=== PATIENT | female | born 1985 | race Caucasian/White ===

== ENCOUNTER 2018-10-29 13:47 | Emergency (ER) | payer BC, SELFPAY ==
[2018-10-29 13:52] VITALS: BP 115/93; PULSE 64; RESP 14; TEMP 36.5; O2SAT 100
--- NOTE | 2018-10-29 14:03 | W.ED.GENAD ---
Discharge Plan Disposition Patient Disposition: HOME Condition: Good Discharge Details Chief Complaint: EyeProblem Clinical Impression: Blepharitis Primary Care Provider: Eve Galicia ED Provider: Jose Miguel Hedrick Home Meds and New Rx's Prescriptions: No Action No Known Home Meds RF: 0 Discharge Instructions Instructions: Blepharitis (ED) Additional Instructions: Please wash your eyes very gently 3 times a day with baby shampoo. Please follow-up with your gas systems worker as soon as possible for reassessment. If you notice any worsening of your symptoms, or any new symptoms such as vision changes, eye pain, vomiting, diarrhea, fever, chills, shortness of breath, chest pain, numbness, weakness, or fainting , please return immediately to the emergency department for reevaluation. Please follow up with your primary care provider as soon as possible for reassessment and reevaluation. As always, it was a pleasure participating in your medical care today. Referrals: Eve Galicia MD [Primary Care Provider] - Medical Decision Making This is a pleasant 33-year-old female who presents with symptoms of itching for the upper eyelid by the lashes themselves. Physical exam demonstrates evidence of a small amount of sebum, slightly retracted lashes. Concern from very mild blepharitis. No evidence of periorbital edema or cellulitis. No pain with movement of the eye. No signs or symptoms concerning for conjunctivitis. No evidence of mites on exam. Recommend to the patient that she washes her eyes 3 times daily with baby shampoo, as well as avoiding her numerous care. Discussed importance of close follow-up with her gas systems worker with Dr. Jalloh office. I see no indication for antibiotics at this time. The patient's symptoms do not improve tetracycline may be a reasonable alternative for future Sebum management. I have extensively reviewed the treatment plan and discharge instructions with the patient. I have addressed all patient concerns at this time. The patient was made aware of what symptoms to monitor for that would warrant a return to the emergency department. Discussed the plan with the patient, they demonstrate verbal understanding and agreement with our assessment and plan at this time. HPI General Date/Time Provider Initiated Documentation: 10/29/18 13:50. HPI Narrative: This is a 33-year-old female with no significant past medical history who presents today with irritation for her upper eyelids bilaterally. She states that she was looking up online and was concerned that it may be mites from her new mascara. She describes mild swelling in the upper lids bilaterally which is now improved and now she has some flaky irritation. She denies any significant matting, discharge, eye pain, itchiness for the eyes themselves, or other abnormalities. She denies any trauma. She denies any fever, chills, or infection. No pain with movement of her eyes. No other modifying factors or complaints at this time. Related Data Home Medications Medication Instructions Recorded Confirmed Unknown [No Known Home Meds] 10/29/18 10/29/18 Allergies Allergy/AdvReac Type Severity Reaction Status Date / Time No Known Allergies Allergy Unverified 06/19/17 13:14 General Stated Complaint: EyeProblem FERNANDO: 4 Review of Systems Review of Systems All systems reviewed & are unremarkable except as noted in HPI and below PFSH Medical History Human papilloma virus (HPV) infection Family History Mother Alcohol abuse Father No problems noted. Son No problems noted. Son No problems noted. Social History Smoking and Tabacco status: Never Exam Narrative Exam Narrative: 1.Const: Well-nourished, Well-developed, appearing stated age 2.Eyes: PERRL, no conjunctival injection, and symmetrical lids. Evaluation with slit lamp shows no evidence of mites, there is a small amount of sebum noted at the base of the lashes. No evidence of conjunctival irritation, no evidence of chalazion or stye, no evidence of dimpling of the conjunctiva. Vision is normal, 20/20 in both eyes, no significant abnormalities or deficits. No signs of periorbital edema or swelling. 3.ENT: Atraumatic external nose and ears. Moist MM. Neck: Symmetric, trachea midline, No thyromegaly. 4.CVS: +S1/S2, No murmurs or gallops. Peripheral pulses 2+ and equal in all extremities. Brisk capillary refill in all extremities. 5.RESP: Unlabored respiratory effort. Clear to auscultation bilaterally. No wheezes rales or rhonchi 6.GI: Soft, Nontender/Nondistended, No hepatosplenomegaly. No guarding or rebound. 7.MSK: Normocephalic/Atraumatic, Extremities w/o deformity or ttp No cyanosis or clubbing, Normal movement of all extremities 8.Skin: Warm, Dry. No rashes or lesions. 9.Neuro: manager managed backup services II-XII grossly intact. Sensation grossly intact, no focal neurologic deficits. 10.Psych: (AAO) x3. Appropriate mood and affect Course Vital Signs Temperature 36.5 C 10/29/18 13:52 Pulse 64 10/29/18 13:52 Respiratory Rate 14 10/29/18 13:52 Blood Pressure 115/93 H 10/29/18 13:52 Pulse Oximetry 100 10/29/18 13:52 Temperature 36.5 C 10/29/18 13:52 Temperature Source Skin 10/29/18 13:52 Pulse 64 10/29/18 13:52 Respiratory Rate 14 10/29/18 13:52 Respiratory Effort Non-Labored 10/29/18 14:00 Blood Pressure 115/93 H 10/29/18 13:52 Blood Pressure Position Sitting 10/29/18 13:52 Pulse Oximetry 100 10/29/18 13:52 Oxygen Delivery Method Room Air 10/29/18 13:52 Oxygen Flow Rate 0 10/29/18 13:52
--- NOTE | 2018-10-29 14:06 | ED.GENADUL_ITS ---
Discharge Plan Disposition Patient Disposition: HOME Condition: Good Discharge Details Chief Complaint: EyeProblem Clinical Impression: Blepharitis Primary Care Provider: Eve Galicia ED Provider: Jose Miguel Hedrick Home Meds and New Rx's Prescriptions: No Action No Known Home Meds RF: 0 Discharge Instructions Instructions: Blepharitis (ED) Additional Instructions: Please wash your eyes very gently 3 times a day with baby shampoo. Please follow-up with your plant breeder as soon as possible for reassessment. If you notice any worsening of your symptoms, or any new symptoms such as vision changes, eye pain, vomiting, diarrhea, fever, chills, shortness of breath, chest pain, numbness, weakness, or fainting , please return immediately to the emergency department for reevaluation. Please follow up with your primary care provider as soon as possible for reassessment and reevaluation. As always, it was a pleasure participating in your medical care today. Referrals: Eve Galicia MD [Primary Care Provider] - Medical Decision Making This is a pleasant 33-year-old female who presents with symptoms of itching for the upper eyelid by the lashes themselves. Physical exam demonstrates evidence of a small amount of sebum, slightly retracted lashes. Concern from very mild blepharitis. No evidence of periorbital edema or cellulitis. No pain with movement of the eye. No signs or symptoms concerning for conjunctivitis. No evidence of mites on exam. Recommend to the patient that she washes her eyes 3 times daily with baby shampoo, as well as avoiding her numerous care. Discussed importance of close follow-up with her plant breeder with Dr. Jalloh office. I see no indication for antibiotics at this time. The patient's symptoms do not improve tetracycline may be a reasonable alternative for future Sebum management. I have extensively reviewed the treatment plan and discharge instructions with the patient. I have addressed all patient concerns at this time. The patient was made aware of what symptoms to monitor for that would warrant a return to the emergency department. Discussed the plan with the patient, they demonstrate verbal understanding and agreement with our assessment and plan at this time. HPI General Date/Time Provider Initiated Documentation: 10/29/18 13:50 . HPI Narrative: This is a 33-year-old female with no significant past medical history who presents today with irritation for her upper eyelids bilaterally. She states that she was looking up online and was concerned that it may be mites from her new mascara. She describes mild swelling in the upper lids bilaterally which is now improved and now she has some flaky irritation. She denies any significant matting, discharge, eye pain, itchiness for the eyes themselves, or other abnormalities. She denies any trauma. She denies any fever, chills, or infection. No pain with movement of her eyes. No other modifying factors or complaints at this time. Related Data Home Medications Medication Instructions Recorded Confirmed Unknown [No Known Home Meds] 10/29/18 10/29/18 Allergies Allergy/AdvReac Type Severity Reaction Status Date / Time No Known Allergies Allergy Unverified 06/19/17 13:14 General Stated Complaint: EyeProblem FERNANDO: 4 Review of Systems Review of Systems All systems reviewed & are unremarkable except as noted in HPI and below PFSH Medical History Human papilloma virus (HPV) infection Family History Mother Alcohol abuse Father No problems noted. Son No problems noted. Son No problems noted. Social History Smoking and Tabacco status: Never Exam Narrative Exam Narrative: 1.Const: Well-nourished, Well-developed, appearing stated age 2.Eyes: PERRL, no conjunctival injection, and symmetrical lids. Evaluation with slit lamp shows no evidence of mites, there is a small amount of sebum noted at the base of the lashes. No evidence of conjunctival irritation, no evidence of chalazion or stye, no evidence of dimpling of the conjunctiva. Vision is normal, 20/20 in both eyes, no significant abnormalities or deficits. No signs of periorbital edema or swelling. 3.ENT: Atraumatic external nose and ears. Moist MM. Neck: Symmetric, trachea midline, No thyromegaly. 4.CVS: +S1/S2, No murmurs or gallops. Peripheral pulses 2+ and equal in all extremities. Brisk capillary refill in all extremities. 5.RESP: Unlabored respiratory effort. Clear to auscultation bilaterally. No wheezes rales or rhonchi 6.GI: Soft, Nontender/Nondistended, No hepatosplenomegaly. No guarding or rebound. 7.MSK: Normocephalic/Atraumatic, Extremities w/o deformity or ttp No cyanosis or clubbing, Normal movement of all extremities 8.Skin: Warm, Dry. No rashes or lesions. 9.Neuro: petal shaper hand II-XII grossly intact. Sensation grossly intact, no focal neurologic deficits. 10.Psych: (AAO) x3. Appropriate mood and affect Course Vital Signs Temperature 36.5 C 10/29/18 13:52 Pulse 64 10/29/18 13:52 Respiratory Rate 14 10/29/18 13:52 Blood Pressure 115/93 H 10/29/18 13:52 Pulse Oximetry 100 10/29/18 13:52 Temperature 36.5 C 10/29/18 13:52 Temperature Source Skin 10/29/18 13:52 Pulse 64 10/29/18 13:52 Respiratory Rate 14 10/29/18 13:52 Respiratory Effort Non-Labored 10/29/18 14:00 Blood Pressure 115/93 H 10/29/18 13:52 Blood Pressure Position Sitting 10/29/18 13:52 Pulse Oximetry 100 10/29/18 13:52 Oxygen Delivery Method Room Air 10/29/18 13:52 Oxygen Flow Rate 0 10/29/18 13:52
== END 2018-10-29 14:12 | disposition home or self-care (01) ==
LOC: ER 14:34
PROVIDERS: Emergency Provider Student in an Organized Health Care Education/Training Program; PCP Nurse Practitioner Family
DX: H01.001 Unspecified blepharitis right upper eyelid (principal); H01.004 Unspecified blepharitis left upper eyelid
CPT/HCPCS: 99282

== ENCOUNTER 2019-04-04 20:23 | Emergency (ER) | payer BC, SELFPAY ==
[2019-04-04 20:25] VITALS: BP 112/52; PULSE 56; RESP 16; TEMP 36.4; O2SAT 100
--- NOTE | 2019-04-04 20:33 | W.ED.GENAD ---
Discharge Plan Disposition Patient Disposition: HOME Condition: Good Discharge Details Chief Complaint: Laceration Clinical Impression: Laceration of right palm Primary Care Provider: Ekaterina Valentine ED Provider: Taylor Gauthier Home Meds and New Rx's Prescriptions: No Action No Known Home Meds RF: 0 Discharge Instructions Instructions: Laceration (ED), Skin Adhesive Care (ED) Additional Instructions: Keep wound clean, dry, covered. Please monitor for signs of infection including redness, warmth, drainage, increased pain, fever/chills. If you develop these or other new/worsening symptoms please seek care urgently once again. Please encourage rest and elevation. Avoid heavy lifting. Do not apply any ointment over the adhesive. Allow this to come off naturally. Please follow-up with primary care next week for reevaluation of your wound and sensation. Referrals: Ekaterina Valentine [Primary Care Provider] - Discharge Data Discharge Date/Time-TO BE ENTERED AT DEPARTURE: 04/04/19 22:09 Medical Decision Making Patient is a 33-year-old [id number] female presenting today with chief complaint of laceration to the right palm. She reports that prior to arrival she was hanging blinds when she was caught on a picture frame with broken glass that fell. Denies other injury at the time of the incident. Suffered a 1.5 cm linear laceration that appears to be into the subcutaneous tissue. She is endorsing numbness of the ring finger, two-point discrimination is diminished along the radial side of the fifth digit. Otherwise, sensation remains intact. Ligamentous exam, particular with flexion remains intact to reflect the digits. States that subsequently, she had 2 syncopal episodes. 1 of which, she fell and struck her chin. She has no pain with palpation over this area. Bite remains intact, no dentition issues. Full range motion of the TMJ without discomfort. Neurologic exam is otherwise intact, trauma assessment is otherwise without acute abnormality. Patient is in extreme discomfort and writhing in the bed. Pain is greatly out of proportion with what I am finding on exam. Her pain is all emanated from the small laceration to the right hand. Concern for possible fracture as the frame fell and it landed on her, plan to obtain imaging. Also considered retained foreign body and will evaluate further once the area sufficiently anesthetized. I do not feel the patient will likely tolerate a local injection at this point, will anesthetized topically with LET. Patient is s/p tubal ligation. Will give oral ibuprofen and tylenol. No longer feeling presyncopal, history consistent with vasovagal event. Brought in via EMS. IMPRESSION: No fracture or subluxation demonstrated. No foreign body demonstrated. Nonspecific gas bubbles between heads of the second and third metacarpals. These could have been introduced at the time of injury. Infection could result in this appearance. As patient did not have pain prior to trauma and no current evicdence of infection, this is likely from trauma. LET worked well for anesthetic. Was able to copiously irrgate the wound. Into subQ tissue but no tendonous or bony involvement noted. Fairly superficial. No FB or debris noted, explored to base in bloodless field. Closed with adhesive. We discussed wound care in depth. Encourage rest, ice, elevation. Tylenol and ibuprofen as needed for discomfort. She reports the pain is already improving. Advise follow-up with primary care within the next week for reevaluation and to reassess her sensation. We discussed signs symptoms of infection when to seek care urgently once again. We discussed activities that she should avoid. All of her questions and concerns were addressed and she is in agreement this plan. HPI General Mode of arrival: EMS. Date/Time Provider Initiated Documentation: 04/04/19 20:32. Limitations to Documentation: no limitations. Information obtained by: patient, family, EMS and RN notes reviewed. History of Present Illness 33 year old F presents to the emergency department with the chief complaint of laceration right hand, described as severe, with intensity rated at 7. Quality is described as stabbing, and is localized to the left and upper extremity. Patient reports no radiation. Patient started experiencing this hour(s) (1) and it has been constant. No relieving factors improve symptom(s), Movement worsens symptoms . Patient notes no other symptoms.. Patient did receive the following treatments prior to arrival, none Related Data Home Medications Medication Instructions Recorded Confirmed Unknown [No Known Home Meds] 10/29/18 04/04/19 Allergies Allergy/AdvReac Type Severity Reaction Status Date / Time No Known Allergies Allergy Unverified 04/04/19 20:34 General Stated Complaint: Laceration FERNANDO: 4 Review of Systems Constitutional Reports as per HPI, Denies chills, Denies fatigue, Denies fever(s), Denies headache(s) and Denies weakness Eyes Reports as per HPI, Denies blurry vision, Denies change in vision and Denies loss of vision ENT Denies abnormal hearing and Denies headache(s) Cardiovascular Reports as per HPI, Denies chest pain and Denies dyspnea Respiratory Reports as per HPI, Denies cough, Denies pain on inspiration, Denies pain with cough and Denies dyspnea Gastrointestinal Reports as per HPI, Denies abdominal pain, Denies nausea and Denies vomiting Genitourinary Reports as per HPI and Denies urinary incontinence Musculoskeletal Reports as per HPI Integumentary/Breasts Reports as per HPI and Reports wounds Neurologic Reports as per HPI, Denies abnormal hearing, Denies abnormal movements, Denies abnormal speech, Denies headache(s), Denies lack of coordination, Denies focal weakness, Denies loss of vision, Denies seizure-like activity, Reports paresthesias (feels numbness/tingling right 5th digit) and Denies weakness Endocrine Denies fatigue [facility] Medical History Human papilloma virus (HPV) infection Surgical History History of section (Chronic) Family History Mother Alcohol abuse Father No problems noted. Son No problems noted. Son No problems noted. Social History Smoking/Tobacco Use Status: Never Alcohol Intake: former Drug use: Never Do you feel safe in your relationship?: Yes Exam Const General: cooperative, healthy appearing, uncomfortable (patient is writhing in pain, holding up right hand), well developed, well groomed and in distress Nutritional Appearance: well nourished and overweight Orientation: alert, awake and oriented x3 HENMT Head: normal to inspection, no palpable skull fracture, normocephalic and atraumatic Ears: hearing grossly normal bilaterally and external ears normal General nose exam: external nose normal Face and sinus: normal facial exam and face symmetric Mouth: oral mucosae normal, lip normal, tongue normal, oropharynx normal, moist mucous membranes, no muffled voice, normal tongue, No abnormal TMJ, no trismus and No restricted motion Teeth and gingiva: dentition normal and gingiva normal Throat: posterior oropharynx normal Eyes General: appearance normal, both eyes and all related structures Visual Wang: normal visual wang by confrontation Alignment and Position: alignment normal Periorbital: periorbital findings normal Eyelids: eyelids normal Conjunctivae: conjunctivae normal Pupils: PERRL EOM: EOM intact bilaterally Neck Neck: normal visual inspection, full ROM, no lymphadenopathy, no meningeal signs, trachea midline and supple Chest Chest: normal inspection of the chest, normal palpation of entire chest wall, no crepitus and no localized rib tenderness Resp Effort & Inspection: normal respiratory effort, able to speak in complete sentences and no respiratory distress Auscultation: clear to auscultation bilaterally, no rales, no rhonchi and no wheezes Cardio Rate: regular rate Rhythm: regular rhythm Heart Sounds: S1 normal and S2 normal GI Inspection: normal to inspection, non-distended and obesity Palpation: soft, not firm, no guarding, no pulsatile masses, not rigid and nontender Back/Spine/Pelvis Back: no CVA tenderness Cervical Spine: normal cervical lordosis and cervical ROM normal Thoracic/Lumbar Spine: thoracic and lumbar spine normal to inspection, thoraco-lumbar ROM normal, No thoraco-lumbar ROM limited, No thoraco-lumbar spasm and No thoracic spinal tenderness Pelvis: no pain with anterior-posterior compression and no pain with lateral compression Skin Trauma: laceration (1.5cm linear laceration ulnar side midpalm left hand, no bleeding) Neuro General: alert, awake, oriented x3, gait normal, tone normal and moves all extremities Cranial Nerves: CN's II-XI intact bilaterally Cognition: normal cognition Speech: speech normal Gait: normal gait Motor: muscle tone normal throughout and strength 5/5 throughout Sensory Exam: abnormal double simultaneous stimulation (2 point diminished on radial side 5th left digit) Extrem General: normal capillary refill, no pedal edema and no calf tenderness Right upper extremity: normal capillary refill, wrist Details: normal to inspection and hand Details: normal capillary refill, neurosensory exam abnormal (2 point diminished radial side 5th digit), tendon exam normal (flexion of 4&5 intact with isolation testing), tenderness (severe pain with palpation generally about hand, max over lac), vascular exam Details: radial pulse present and normal capillary refill and laceration; abnormal to inspection (laceration as above), ROM of fingers abnormal (will not range secondary to pain at laceration), no unusual warmth, no swelling, no ecchymosis, no crepitus and no foreign bodies; abnormal to inspection (laceration as above), ROM limited (severe pain with movement of digits, pain in laceration) and no edema Psych Appearance: grossly normal and well kempt Mental Status: mental status grossly normal Speech and Movement: speech and movement normal Course Vital Signs Temperature 36.4 C L 04/04/19 20:25 Pulse 56 L 04/04/19 20:25 Respiratory Rate 16 04/04/19 20:25 Blood Pressure 112/52 L 04/04/19 20:25 Pulse Oximetry 100 04/04/19 20:25 Temperature 36.4 C L 04/04/19 20:25 Pulse 56 L 04/04/19 20:25 Respiratory Rate 16 04/04/19 20:25 Respiratory Effort Non-Labored 04/04/19 20:27 Blood Pressure 112/52 L 04/04/19 20:25 Pulse Oximetry 100 04/04/19 20:25 Pain Level 7 04/04/19 20:25
[2019-04-04] MEDS: Ibuprofen 600 MG TAB PO (20:39)
[2019-04-04] MEDS: Acetaminophen 500 MG TAB 1000 MG PO (20:39)
[2019-04-04] MEDS: Lidocaine/Epinephri/Tetracaine Topical Gel 3 ML TP (20:39)
--- NOTE | 2019-04-04 20:55 | DI.RAD_ITS ---
SYMPTOMS/DIAGNOSIS: TRAUMA, PALMAR SIDE OF 5TH METACARPAL, LACERATION CAUSED BY GLASS RIGHT HAND: Four views. No acute fracture or dislocation is seen. No radiopaque foreign bodies are seen in the soft tissues.
--- NOTE | 2019-04-04 21:27 | DI.VRAD_ITS ---
EXAM: XR Right Hand EXAM DATE/TIME: 04/04/2019 8:33 PM CLINICAL HISTORY: 33 years old, female; Injury or trauma; Injury history: Trauma palmar side 5th metacarpal, glass through hand; Initial encounter; Right; Injury date: 04/04/19; Injury details: Laceration caused by glass, hand pain along with 4th and 5th digit TECHNIQUE: Imaging protocol: XR Right hand. Views: 3 or more views. COMPARISON: No relevant prior studies available. FINDINGS: Bones/joints: No fracture or subluxation. Soft tissues: No radiopaque foreign body demonstrated. Subtle distortion in subcutaneous tissues about the medial aspect, fifth metacarpal. Nonspecific gas bubbles between heads of both second and third metacarpals. IMPRESSION: No fracture or subluxation demonstrated. No foreign body demonstrated. Nonspecific gas bubbles between heads of the second and third metacarpals. These could have been introduced at the time of injury. Infection could result in this appearance. Dictated and Authenticated by: Jose Colby MD. Ordering:ALAN Vazquez MD
== END 2019-04-04 22:09 | disposition home or self-care (01) ==
PROVIDERS: Emergency Provider Physician Assistant; PCP Nurse Practitioner Family
DX: S61.411A Laceration without foreign body of right hand, initial encounter (principal); W25.XXXA Contact with sharp glass, initial encounter
CPT/HCPCS: 99283; 73130; 99282

== ENCOUNTER 2021-08-01 19:11 | Outpatient (REF) | payer SELFPAY ==
[2021-08-01 15:53] LABS: Abs Immature Grans 0.01 10^3/uL (0.0-0.06); Absolute Basophil Count 0.01 10^3/uL (0.0-0.2); Absolute Eosinophil Count 0.02 10^3/uL (0.0-0.7); Absolute Lymphocyte Count 0.99 10^3/uL (1.2-3.4); Absolute Monocyte Count 0.34 10^3/uL (0.1-0.8); Absolute Neutrophil Count 4.91 10^3/uL (1.2-6.7); Basophils % 0.2; Eosinophils % 0.3; HCT 40.6 % (36.0-46.0); HGB 12.9 g/dL (11.2-15.7); Immature Grans % 0.2; Lymphocytes % 15.8; MCH 29.5 pg (27.0-33.0); MCHC 31.8 % (32.0-36.0); MCV 92.9 fL (80-95); MPV 10.4 fL (8.0-11.0); Monocytes % 5.4; Neutrophils % 78.1; Nucleated RBC 0 %; Platelet Count 241 10^3/uL (130-400); RBC 4.37 10^6/uL (3.93-5.22); RDW 13.1 % (11.7-14.6); RDW-SD 45.1 fL; WBC 6.28 10^3/uL (4.4-10.8)
[2021-08-01 17:17] LABS: Anion Gap 9.7 mmol/L (3-11); BUN 17 mg/dL (7-18); CO2 27.3 mmol/L (21.0-32.0); CREATININE 0.5 mg/dL (0.55-1.02); Calcium 8.6 mg/dL (8.5-10.1); Chloride 108 mmol/L (98-107); Glucose 91 mg/dL (74-106); Potassium 4.1 mmol/L (3.5-5.1); Sodium 145 mmol/L (136-145); TSH (W/Ref FT4) 0.79 uIU/mL (0.36-3.74)
== END 2021-08-01 19:12 | disposition home or self-care (01) ==
LOC: NCHCN 19:11
PROVIDERS: PCP Nurse Practitioner Family; Visit Provider Physician Assistant Medical
DX: R07.9 Chest pain, unspecified (principal)
CPT/HCPCS: 80048; 84443; 85025

== ENCOUNTER 2021-12-16 11:49 | Outpatient (REF) | payer BC, SELFPAY ==
[2021-12-16 17:35] LABS: Bilirubin Negative (Negative); Blood Negative (Negative); Clarity Clear (Clear); Glucose Negative (Negative); Ketones Negative (Negative); Leukocyte Esterase Negative (Negative); Nitrite Negative (Negative); Specific Gravity >= 1.030 (1.005-1.025); Urobilinogen 0.2 EU/dL (Up TO 0.2)
[2021-12-16 17:44] LABS: RBC 0-2 HPF (0-2); WBC 0-2 HPF (0-5)
[2021-12-16 17:45] LABS: Bacteria Negative HPF (Negative); C & S Indicated? No; Crystals Negative HPF (Negative); Epithelial Cells Few HPF (Negative); Mucus Trace (Negative)
== END 2021-12-16 11:50 | disposition home or self-care (01) ==
LOC: NCHCN 11:49
PROVIDERS: PCP Nurse Practitioner Family; Visit Provider Family Medicine
DX: N76.0 Acute vaginitis (principal)
CPT/HCPCS: 81003; 81015; 87480; 87510; 87660

== ENCOUNTER 2022-04-22 20:36 | Outpatient (REF) | payer SELFPAY | END 2022-04-22 20:37 | disposition home or self-care (01) | LOC: NCHCN 20:36 | PROVIDERS: PCP Nurse Practitioner Family; Visit Provider Nurse Practitioner Family | DX: J02.0 Streptococcal pharyngitis (principal); J02.9 Acute pharyngitis, unspecified | CPT/HCPCS: 87077; 87070 ==

== ENCOUNTER 2022-05-22 11:36 | Outpatient (REF) | payer BC, SELFPAY ==
[2022-05-23 09:02] LABS: HIV-1/2 Ag & Ab Screen Negative (Negative)
[2022-05-23 09:13] LABS: Hepatitis C Ab w Rflx HCV PCR Negative (Negative)
[2022-05-23 11:09] LABS: Syphilis Serology (RPR) Negative (Negative)
[2022-05-23 15:08] LABS: Chlamydia Result Negative (Negative); GC Result Negative (Negative)
== END 2022-05-22 11:37 | disposition home or self-care (01) ==
LOC: LBN 11:36
PROVIDERS: PCP Nurse Practitioner Family; Visit Provider Nurse Practitioner Family
DX: R31.9 Hematuria, unspecified (principal); Z11.3 Encounter for screening for infections with a predominantly sexual mode of transmission; Z85.41 Personal history of malignant neoplasm of cervix uteri; Z11.4 Encounter for screening for human immunodeficiency virus [HIV]; Z11.59 Encounter for screening for other viral diseases
CPT/HCPCS: 86803; 87077; 87389; 87491; 87591; 86592; 87086; 87186; 87480; 87510; 87660

== ENCOUNTER 2022-07-08 15:04 | Outpatient (REF) | payer BC, SELFPAY | END 2022-07-08 15:05 | disposition home or self-care (01) | LOC: NCHCN 15:04 | PROVIDERS: PCP Nurse Practitioner Family; Visit Provider Nurse Practitioner Family | DX: R31.9 Hematuria, unspecified (principal) | CPT/HCPCS: 87086 ==

== ENCOUNTER 2023-07-01 08:18 | Day surgery (SDC) | payer OTHER, SELFPAY ==
[2023-07-01] VITALS (7 sets, daily range): BP systolic 101–115; BP diastolic 59–87; PULSE 54–68; RESP 13–19; TEMP 36.4–36.6; O2SAT 97–100; BMI 23.6
--- NOTE | 2023-07-01 06:39 | W.ANESPRE ---
General Info Date of Service Date Performed: 07/01/23 Height: 5 ft 7 in Weight: 68.492 kg Body Mass Index (BMI): 23.6 Surgical Procedure: Operation Date: 07/01/23 09:10 Proposed Procedure Side Surgeon p Exam Under Anesthesia Ashlee Thao MD Meds Allergies and Home Medications Allergies Allergy/AdvReac Type Severity Reaction Status Date / Time No Known Allergies Allergy Unverified 06/30/23 12:32 Home Medication Medication Instructions Recorded Unknown [No Known Home Meds] 06/05/23 Current Visit Medications: Current Medications Generic Name Dose Route Start Last Admin Trade Name Freq PRN Reason Stop Dose Admin Ringer's Solution 1,000 mls @ 80 mls/hr 07/01/23 06:00 IV 07/30/23 23:59 INFUSION KRISTAN Metronidazole 500 mg in 100 mls @ 100 mls/hr 07/01/23 06:00 Flagyl IVPB 07/01/23 23:59 PREOP KRISTAN IV Miscellaneous Supplies 1 each 07/01/23 06:00 Iv Access IV 07/30/23 23:59 DIRECTED KRISTAN Sodium Biphosphate/Sodium Phosphate 133 ml 07/01/23 06:00 Na Phosphate Enema 133 Ml Btl ID 07/01/23 23:59 PREOP KRISTAN Sodium Chloride 0 ml 07/01/23 06:00 Normal Saline Flush 10 Ml Syr IV 07/30/23 23:59 PRN PRN Sodium Chloride 0 ml 07/01/23 06:00 Normal Saline 10 Ml Vial IJ 07/30/23 23:59 DIRECTED PRN Sterile Water 0 ml 07/01/23 06:00 Water,Injection,Sterile 10 Ml Vial IJ 07/30/23 23:59 DIRECTED PRN PFSH Active Problems Active Problems: Problem Status Onset Code Bartholin cyst N75.0 Perirectal abscess K61.1 Medical History Medical History Alcohol abuse Human papilloma virus (HPV) infection 2007, 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 Surgical History Surgical History H/O hand surgery Hx of hysterectomy History of section Tobacco Smoking/Tobacco Use Status: Never Alcohol Alcohol Intake: former Substance Use Substance use: Never Substance use type: does not use Vital Signs and Lab Results Vital Signs Most Recent Vital Signs in EMR: Temp Pulse Resp BP Pulse Ox 36.6 C 68 16 101/63 100 07/01/23 08:37 07/01/23 08:37 07/01/23 08:37 07/01/23 08:37 07/01/23 08:37 Lab Results Blood Type / Crossmatch: No Data to Display Complete Blood Count: No Data to Display Complete Metabolic Panel: No Data to Display Liver Function Panel: No Data to Display Coagulation Panel: No Data to Display Cardiac Panel: No Data to Display Arterial Blood Gas: No Data to Display Venous Blood Gas: No Data to Display Pancreas Panel: No Data to Display Thyroid Panel: No Data to Display Infectious Disease: No Data to Display Blood Cultures: No Data to Display Toxicology Panel: No Data to Display Panel: No Data to Display Anesthesia Assessment and Plan Anesthesia History Personal History: No History of Anesthesia Complications Family History: No Family History of Anesthesia Complications Exercise Tolerance Exercise Tolerance: Metabolic Equivalents>4 Cardiac & Pulmonary Exam Cardiac Exam: Normal S1/S2 Heart Sounds Pulmonary Exam: Clear Bilateral Breath Sounds Implantable Cardiac Device Does patient have a Pacemaker or an ICD?: No Airway Exam Known Difficult Airway: No Mallampati Class: 1 Mouth Opening: Normal (> 3cm) Thyromental Distance: Greater than 3 cm Neck Range of Motion: Full ROM Neck Circumference: Normal Teeth Condition: Normal Dentition ASA Classification ASA Score: ASA 2 Emergency Case?: No NPO Status NPO Status: NPO Clears >2 hours, Solids >8 hours Status Status: Not Relevant due to Medical History Anesthesia Plan Resuscitation Status: Full Code Anesthesia Technique: General Anesthesia Airway Planned: Endotracheal Tube Monitors Used: Standard Monitors Preoperative Comments:: 37 yo female for EUA. Sig PMHx: never smoker, former EtOH.
[2023-07-01] MEDS: Lactated Ringers 1,000 ML 80 ML IV (09:26)
[2023-07-01] MEDS: metroNIDAZOLE 500 MG/100 ML BAG 100 MG IVPB (09:27)
[2023-07-01] MEDS: Bupivacaine 0.25% Pres-Free 30 ML VIAL (10:15)
--- NOTE | 2023-07-01 10:34 | W.PM.OP ---
Date of service: 07/01/23 Time of Service: 10:34 Operative Note Operative Note DATE OF PROCEDURE: 07/01/23 PRE-OP DIAGNOSIS: Hx of pro-rectal cancer POST-OP DIAGNOSIS: same PROCEDURE: Exam under anesthesia SURGEON: Ashlee Thao ANESTHESIA TYPE: General LMA/ETT Refer to Anesthesia Record ESTIMATED BLOOD LOSS: 2 PATHOLOGY: none sent COMPLICATIONS: None Patient was transported to: PACU Patient's condition: stable Indications: Sada is a female with a history of perirectal abscess about a month ago. This was the first time that she never had an abscess. We discussed doing an exam under anesthesia versus just watchful waiting. She would like to be proactive and undergo an exam under anesthesia to look for a fistula track. I reviewed the procedure in detail as well as its possible complications. After our conversation she had a good understanding of both the procedure as well as the complications. Complications include but are not limited to bleeding, infection, injury to the rectus muscle with subsequent stool incontinence and adverse reaction to the anesthesia. 09:45 Patient was seen in [facility] prior to her procedure. We reviewed the procedure in detail as well as the possible complications. She felt comfortable signing the consent and understood the potential complications of the surgery. Findings: Grade 1 and 2 internal hemorrhoids at the 3 to 6 o'clock No fistula was identified Procedure Description: After informed consent was obtained the patient was taken to the Operating room. She was placed under general anesthesia. Once intubated and the ET tube was secured the patient was placed in a prone position on the Operating table. Her buttocks were using tape on either side. Next a time out was done and the patients name, , allergies to medications, antibiotic given, procedure to be done were reviewed. Fire risk was assessed. Next the buttocks and pro-anal area were prepped with iodine and draped in a standard fashion. Next exparel mixed 50/50 with bupivocaine was injected circumferentially around the rectum. A rectal retractor was then placed into the rectum. Using a lacrimal probe the entire rectum was probed. No fistula opening was identified. Grade 1 and 2 internal hemorrhoids were identified from the 3 to 6 o'clock position. The retractor was removed. The skin was cleaned and dried.The rest of the local was placed circumferentially. The patient was then placed on a gurney in a supine position and taken back to PACU. The patient tolerated the procedure well and there were no complications.
--- NOTE | 2023-07-01 10:44 | W.PM.DSUDISC ---
Date of service: 07/01/23 Time of Service: 11:03 Discharge Plan Disposition Patient Disposition: Home Condition: Stable Discharge Details Reason For Visit: Hx of perirectal abscess Attending Provider: Ashlee Thao Primary Care Provider: Sharri Hidalgo Home Meds and New Rx's Prescriptions: No Action No Known Home Meds Discharge Instructions Additional Instructions: Activity at Home after surgery: 1. As tolerated Diet, Nutrition, & wound healin. As tolerated Pain Medications: 1. Tylenol 650mg every 6 hours as needed and Ibuprofen 600 mg every 6 hours as needed. You may alternate between the 2 medications every 3 hours For Constipation: 1. Take Milk of Magnesia or MiraLax as needed for constipation Other: 1.If you have rectal pain please sit in some warm water. Please call our office if you develop: 1. Fevers >101.5 2. Nausea or Vomiting 3. Worsening pain 4. Redness and thick discharge from the wounds If after hours please call the Hospital at and ask to speak to the on-call surgeon Activity:: Activity as Tolerated Diet:: As Tolerated Discharge Orders Discharge Orders: Discharge Order (Routine); Ordered 07/01/23 Ordered By: Ashlee Thao DS: Diagnosis Discharge Diagnosis (1) Internal hemorrhoids: Status: Acute Asessment and Plan: The patient is doing well post-op from the exam under anesthesia surgery.? She is not having any nausea or vomiting. She is tolerating liquids and a snack. The pt is not having any chest pain or SOB.? Her pain is adequately controlled. She has been able to urinate.? ?HEENT:? no eye pain/drainage/redness/swelling. Mild sore throat ?Cardio- NSR, no chest pain, BP stable- see VS record ?Pulm: no sob or productive cough. No hemoptysis ?I discussed with the patient the findings at the time of surgery and the patient?s progress. ?We reviewed expectations at home; what the patient could expect for recovery time, and in the post-operative period.? We discussed the importance of walking to avoid blood clots and pneumonia.? We discussed and reviewed the patient's post-operative wound care and dressing needs.?? We reviewed their step-gonsalves pain management plan, Rx called to the pharmacy of their choice.? We reviewed activity and limitations-see discharge instructions. We reviewed warning signs, and when to seek medical attention- see d/c instructions.?? Patient was given a postoperative follow-up appointment. Patient verbalized understanding of their postoperative instructions, how do to take care of themselves and their incision, and the pain management plan. Please see discharge instructions.?
--- NOTE | 2023-07-01 11:08 | W.ANESPOSTOP ---
Postoperative Evaluation Date, Time and Location Date Performed: 07/01/23 Time Performed: 10:30 Patient Location: PACU Vital Signs Most Recent Imported Vital Signs: Most Recent Vital Signs Temp Pulse Resp BP Pulse Ox 36.5 C 56 L 19 110/75 100 07/01/23 10:45 07/01/23 10:45 07/01/23 10:45 07/01/23 10:45 07/01/23 10:45 Pain Score Most Recent Pain Score: Most Recent Pain Score Pain Level 0 07/01/23 10:36 Assessment Mental Status: Arousable with meaningful communication Airway and Respiratory Function: Patent airway with normal (patient baseline) respiratory exam Cardiovascular Function: Hemodynamically Stable Hydration Status: Adequately Hydrated Nausea & Vomiting: No Nausea or Vomiting Pain: Pain is tolerable per patient Peripheral Nerve Block: Patient did not receive a nerve block
== END 2023-07-01 11:51 | disposition home or self-care (01) ==
PROVIDERS: PCP Nurse Practitioner Family; Visit Provider Surgery
PROC: (CPT 45990; principal; 2023-07-01 09:00)
DX: Z09 Encounter for follow-up examination after completed treatment for conditions other than malignant neoplasm (principal); K64.0 First degree hemorrhoids; K64.1 Second degree hemorrhoids
CPT/HCPCS: 45990; J1100; J2001; J2405; J2704

== ENCOUNTER 2024-03-24 15:55 | Emergency (ER) | payer OTHER, SELFPAY ==
[2024-03-24 15:58] VITALS: BP 124/83; PULSE 80; RESP 12; TEMP 36.8; O2SAT 99
--- NOTE | 2024-03-24 16:30 | DI.CT_ITS ---
Exam(s) CT ABDOMEN PELVIS W EXAM: CT ABDOMEN PELVIS W CLINICAL HISTORY: hx uterine Cancer, right leg numb R groin lesion TECHNIQUE: Imaging Protocol: Axial computed tomography images with coronal and sagittal reformatted images were created and reviewed. CONTRAST MATERIAL: Intravenous: Omnipaque 350 Contrast volume:100 mL Oral: No COMPARISON: CT ABD PELVIS WITH CONTRAST from 05/31/2017 FINDINGS: ABDOMEN: Lung Bases: There are trace bilateral pleural effusions. Liver: Normal density. No measurable mass. Portal, Superior Mesenteric, and Splenic Veins: Unremarkable. Gallbladder and Biliary Tract: No radiodense calculus or dilation. Pancreas: Normal density, no abnormal calcifications or inflammatory process. Spleen: There is a tiny hypodensity again seen in the superior aspect of the spleen which may represe nt a small cyst or hemangioma. Adrenals: No masses seen. Kidneys: Normal size, contour and axis. No radiodense stones or obstructive uropathy. No masses seen. Abdominal Aorta: Abdominal portion non-dilated. Bowel: No obstruction or bowel wall thickening. Appendix is unremarkable. Peritoneal Cavity: No ascites, collection or mesenteric inflammatory response. No free air. Lymph Nodes: Within normal limits. Bones: Within normal limits for the patient's age. Soft Tissues: Unremarkable. PELVIS: Bladder: Symmetric distention, no gross wall thickening. Reproductive Organs: Status post hysterectomy. Lymph Nodes: Within normal limits. Bones: Within normal limits for the patient's age. IMPRESSION: No acute abdominal or pelvic process. RADIATION DOSE DELIVERED: 820.9mGy.cm Total DLP DATA REPOSITORY: All CT scans at this facility are submitted to the National Radiology Data Registry (NRDR) Dose Index Registry (DIR) with the [employer] (ACR). RADIATION OPTIMIZATION: All CT scans at this facility use at least one of these dose optimization te chniques: automated exposure control; mA and/or kV adjustment per patient size (includes targeted exa ms where dose is matched to clinical indication); or iterative reconstruction.
[2024-03-24 17:07] LABS: Abs Immature Grans 0.02 10^3/uL (0.0-0.06); Absolute Basophil Count 0.03 10^3/uL (0.0-0.2); Absolute Eosinophil Count 0.08 10^3/uL (0.0-0.7); Absolute Lymphocyte Count 1.81 10^3/uL (1.2-3.4); Absolute Monocyte Count 0.31 10^3/uL (0.1-0.8); Absolute Neutrophil Count 3.41 10^3/uL (1.2-6.7); Basophils % 0.5 %; Eosinophils % 1.4 %; Immature Grans % 0.4 %; MCH 30.4 pg (27.0-33.0); MCHC 32.5 % (32.0-36.0); MCV 94 fL (80-95); MPV 9.6 fL (8.0-11.0); Monocytes % 5.5 %; Neutrophils % 60.2 %; Platelet Count 232 10^3/uL (130-400); RBC 4.28 10^6/uL (3.93-5.22); RDW 12.5 % (11.7-14.6); RDW-SD 43.3 fL; WBC 5.66 10^3/uL (4.4-10.8)
[2024-03-24 17:18] LABS: Bilirubin Negative (Negative); Blood Negative (Negative); Clarity Clear (Clear); Glucose Negative (Negative); Ketones Negative (Negative); Leukocyte Esterase Negative (Negative); Nitrite Negative (Negative); Specific Gravity 1.015 (1.005-1.025); Urobilinogen 0.2 mg/dL (Up to 0.2); pH 6.5 (5-8)
[2024-03-24 17:21] LABS: ALT 23 U/L (14-59); AST 11 U/L (15-37); Albumin 4.3 g/dL (3.4-5.0); Alkaline Phosphatase 41 U/L (46-116); Anion Gap 9.7 mmol/L (3-11); BUN 8 mg/dL (7-18); Bilirubin, Total 0.58 mg/dL (0.2-1.0); CO2 27.3 mmol/L (21.0-32.0); CREATININE 0.7 mg/dL (0.55-1.02); Calcium 9.4 mg/dL (8.5-10.1); Chloride 105 mmol/L (98-107); Estimated GFR 113.46 (mL/min/1.73m2); Glucose 90 mg/dL (74-106); Potassium 3.3 mmol/L (3.5-5.1); Sodium 142 mmol/L (136-145); Total Protein 7.7 g/dL (6.4-8.2)
--- NOTE | 2024-03-24 18:12 | W.ED.GENAD ---
Discharge Plan Disposition Patient Disposition: Home Condition: Good Discharge Details Clinical Impression: Inguinal lymphadenopathy Primary Care Provider: Unknown,Unknown ED Provider: Jose Miguel Hedrick Home Meds and New Rx's Prescriptions: No Action No Known Home Meds Discharge Instructions Instructions: Lymphadenitis Additional Instructions: At this time there appears to be a small lymph node that is causing irritation. There is no other evidence of mass or other significant abnormality. Please apply Voltaren gel to the area to help with the inflammation. Take Tylenol and Motrin as needed. If you notice increasing in size or pain, please return for reassessment and potential ultrasound. If you notice any worsening of your symptoms, or any new symptoms such as vomiting, diarrhea, fever, chills, shortness of breath, chest pain, numbness, weakness, or fainting , please return immediately to the emergency department for reevaluation. Please follow up with your primary care provider as soon as possible for reassessment and reevaluation. As always, it was a pleasure participating in your medical care today. HPI General Date/Time Provider Initiated Documentation: 03/24/24 16:02. HPI Narrative: This is a very pleasant 38-year-old female with a past medical history of hidradenitis suppurativa, previous uterine cancer and hysterectomy, who presents today for evaluation of right groin pain and partial numbness on the right medial thigh. Patient states that symptoms began 4 days ago, she admits to feeling a small nodule which has become slightly painful and tender to the touch. It does not feel anything like previous episodes of hidradenitis suppurativa. She denies any fever or chills. No vaginal discharge. No redness or warmth. She is also noticed some tingling and numbness on the medial aspect of her thigh, but no radiation of this numbness or tingling to the lateral components, but sensation below the knee, rectal or genital area. She admits to normal sensation for her genitals, normal sensation when wiping, she denies any bowel or bladder incontinence. She denies any back pain. She denies any current IV or illicit drug use. No other complaints at this time. As she has not taken any NSAIDs for treatment at this time. 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 3.ENT: Atraumatic external nose and ears. Moist MM. Neck: Symmetric, trachea midline, No thyromegaly. 4.CVS: +S1/S2, No murmurs or gallops. Peripheral pulses 2+ and equal in all extremities. Brisk capillary refill in all extremities. 5.RESP: Unlabored respiratory effort. Clear to auscultation bilaterally. No wheezes rales or rhonchi 6.GI: Soft, Nontender/Nondistended, No hepatosplenomegaly. No guarding or rebound. Genital exam was performed with female nurse Leesa at bedside. No significant abnormalities noted on general exam. A small ropey component is noted just lateral to the labia majora just slightly more proximally towards the groin. No large abscess, mass, or fluctuance. No evidence of drainage redness warmth or discharge. 7.MSK: Normocephalic/Atraumatic, Extremities w/o deformity or ttp No cyanosis or clubbing, Normal movement of all extremities 8.Skin: Warm, Dry. No rashes or lesions. 9.Neuro: applications specialist II-XII grossly intact. Sensation grossly intact, no focal neurologic deficits. Sensation is intact for both lower extremities, however it is minimally diminished over the medial aspect of the right thigh. Sensation is still intact to slightly diminished in comparison to the left. Intact sensation over the genitalia itself, normal rectal tone, normal perirectal sensation. 10.Psych: (AAO) x3. Appropriate mood and affect Course Vital Signs Vital signs: Vital Signs Temperature 36.8 C 03/24/24 15:58 Pulse 80 03/24/24 15:58 Respiratory Rate 12 03/24/24 15:58 Blood Pressure 124/83 03/24/24 15:58 Pulse Oximetry 99 03/24/24 15:58 Temperature 36.8 C 03/24/24 15:58 Temperature Source Skin 07/11/24 15:58 Pulse 80 03/24/24 15:58 Respiratory Rate 12 03/24/24 15:58 Respiratory Effort Normal, Non-Labored 03/24/24 16:02 Blood Pressure 124/83 03/24/24 15:58 Pulse Oximetry 99 03/24/24 15:58 Pain Level 5 03/24/24 15:58 Lab/Test Results Lab/Test Results: Laboratory Tests Range/Units 03/24/24 03/24/24 16:56 17:09 WBC (4.4-10.8) 10^3/uL 5.66 RBC (3.93-5.22) 10^6/uL 4.28 Hgb (11.2-15.7) g/dL 13.0 Hct (36.0-46.0) % 40.0 MCV (80-95) fL 94 MCH (27.0-33.0) pg 30.4 MCHC (32.0-36.0) % 32.5 RDW (11.7-14.6) % 12.5 Plt Count (130-400) 10^3/uL 232 MPV (8.0-11.0) fL 9.6 Immature Gran % % 0.4 Neutrophils % % 60.2 Lymphocytes % % 32.0 Monocytes % % 5.5 Eosinophils % % 1.4 Basophils % % 0.5 Nucleated RBC % (0.0-0.3) % 0.0 Absolute Neutrophils (1.2-6.7) 10^3/uL 3.41 Absolute Lymphocytes (1.2-3.4) 10^3/uL 1.81 Absolute Monocytes (0.1-0.8) 10^3/uL 0.31 Absolute Eosinophils (0.0-0.7) 10^3/uL 0.08 Absolute Basophils (0.0-0.2) 10^3/uL 0.03 Sodium (136-145) mmol/L 142 Potassium (3.5-5.1) mmol/L 3.3 L Chloride (98-107) mmol/L 105 Carbon Dioxide (21.0-32.0) mmol/L 27.3 Anion Gap (3-11) mmol/L 9.7 BUN (7-18) mg/dL 8 Creatinine (0.55-1.02) mg/dL 0.7 Est GFR (CKD-EPI 2020) (mL/min/1.73m2) 113.46 Glucose (74-106) mg/dL 90 Calcium (8.5-10.1) mg/dL 9.4 Total Bilirubin (0.2-1.0) mg/dL 0.58 AST (15-37) U/L 11 L ALT (14-59) U/L 23 Alkaline Phosphatase (46-116) U/L 41 L Total Protein (6.4-8.2) g/dL 7.7 Albumin (3.4-5.0) g/dL 4.3 Urine Color (Yellow) Yellow Urine Clarity (Clear) Clear Urine pH (5-8) 6.5 Ur Specific Calvin (1.005-1.025) 1.015 Urine Protein (Neg-Trace) mg/dL Negative Urine Ketones (Negative) mg/dL Negative Urine Blood (Negative) Negative Urine Nitrite (Negative) Negative Urine Bilirubin (Negative) Negative Urine Urobilinogen (Up to 0.2) mg/dL 0.2 Ur Leukocyte Esterase (Negative) Negative Urine Glucose (Negative) mg/dL Negative Medical Decision Making This is a very pleasant 38-year-old female with a past medical history of hidradenitis suppurativa, previous uterine cancer and hysterectomy, who presents today for evaluation of right groin pain and partial numbness on the right medial thigh. Patient states that symptoms began 4 days ago, she admits to feeling a small nodule which has become slightly painful and tender to the touch. It does not feel anything like previous episodes of hidradenitis suppurativa. She denies any fever or chills. No vaginal discharge. No redness or warmth. She is also noticed some tingling and numbness on the medial aspect of her thigh, but no radiation of this numbness or tingling to the lateral components, but sensation below the knee, rectal or genital area. She admits to normal sensation for her genitals, normal sensation when wiping, she denies any bowel or bladder incontinence. She denies any back pain. She denies any current IV or illicit drug use. No other complaints at this time. As she has not taken any NSAIDs for treatment at this time. Exam demonstrates slight diminishment of sensation over the medial thigh, however no diminishment of sensation whatsoever for the genitals rectum or perirectal area. No evidence of cauda equina syndrome. No midline cervical thoracic or lumbar spine tenderness. A small thin area of ropiness and tenderness in the groin which is where the patient's pain is. No evidence of abscess, cyst, hidradenitis suppurativa, or Bartholin cyst. Patient is very concerned for potential recurrence of cancer/malignancy. We did discuss imaging options and the patient would like to proceed with CT imaging. CT scan with contrast was performed, no abnormalities for the spine, reproductive system, or groin. No evidence of large mass severe lymphadenopathy abscess or other abnormalities. Patient is notably reassured and feels much better. No signs concerning life-threatening etiology at this time. Patient has good sensation below the knee, and the foot, and all other areas of the leg. No foot drop or neurologic deficits. Symptoms notably clinically inconsistent with cauda equina syndrome. Patient will be discharged home. Recommend topical Voltaren gel NSAID therapy for the mild lymphadenopathy. No evidence of infection on exam. Laboratory workup shows no white count bandemia or left shift. Urinalysis negative for evidence of infection. No evidence of STI. Patient will be discharged home. Recommend close follow-up with PCP. If patient's lymphadenopathy worsens or pain continues she may need ultrasonography for further visualization. Discussed red flags which return. I have extensively reviewed the treatment plan and discharge instructions with the patient. I have addressed all patient concerns at this time. The patient was made aware of what symptoms to monitor for that would warrant a return to the emergency department. Discussed the plan with the patient, they demonstrate verbal understanding and agreement with our assessment and plan at this time. The documentation in this chart was dictated using [employer] dictation software. Please excuse any dictation errors. FINDINGS: ABDOMEN: Lung Bases: There are trace bilateral pleural effusions. Liver: Normal density. No measurable mass. Portal, Superior Mesenteric, and Splenic Veins: Unremarkable. Gallbladder and Biliary Tract: No radiodense calculus or dilation. Pancreas: Normal density, no abnormal calcifications or inflammatory process. Spleen: There is a tiny hypodensity again seen in the superior aspect of the spleen which may represent a small cyst or hemangioma. Adrenals: No masses seen. Kidneys: Normal size, contour and axis. No radiodense stones or obstructive uropathy. No masses seen. Abdominal Aorta: Abdominal portion non-dilated. Bowel: No obstruction or bowel wall thickening. Appendix is unremarkable. Peritoneal Cavity: No ascites, collection or mesenteric inflammatory response. No free air. Lymph Nodes: Within normal limits. Bones: Within normal limits for the patient's age. Soft Tissues: Unremarkable. PELVIS: Bladder: Symmetric distention, no gross wall thickening. Reproductive Organs: Status post hysterectomy. Lymph Nodes: Within normal limits. Bones: Within normal limits for the patient's age. IMPRESSION: No acute abdominal or pelvic process. 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 Son No problems noted. Son No problems noted. Social History Smoking/Tobacco Use Status: Never Smoking risk assessment performed?: Yes Alcohol Intake: former Drug use: Never Substance use type: does not use Housing: house Do you feel safe at home: Yes Do you feel safe in your relationship?: Yes Additional Social history: lives alone POCUS Exam (ED) Limited Soft Tissue Exam DATE OF EXAM: 03/24/24 TIME OF EXAM: 18:14 PROVIDER THAT PERFORMED THE STUDY: Jose Miguel Hedrick IS THIS A REPEAT EXAM DURING THIS ENCOUNTER: No LOCATION OF EXAM: Perineum (right groin) REASON FOR EXAM: Lymphadenopathy and Swelling VISUALIZED STRUCTURES: Muscle, Skin and Subcutaneous tissue PERTINENT FINDINGS/IMPRESSION: No apparent abnormalities. Exam Complete
[2024-03-24] MEDS: Normal Saline - Diluent 50 ML VIAL IJ (18:17)
[2024-03-24] MEDS: Omnipaque 350 MG/ML 100 ML BTL IJ (18:18)
== END 2024-03-24 19:45 | disposition home or self-care (01) ==
PROVIDERS: Emergency Provider Student in an Organized Health Care Education/Training Program
DX: R10.31 Right lower quadrant pain (principal); G57.91 Unspecified mononeuropathy of right lower limb; R59.0 Localized enlarged lymph nodes; Z85.42 Personal history of malignant neoplasm of other parts of uterus
CPT/HCPCS: 36415; 76857; 80053; 99285; 74177; 81003; 85025; 99283; J3490

== ENCOUNTER 2024-04-27 03:24 | Outpatient (CLI) | payer OTHER, SELFPAY ==
[2024-04-27 15:31] LABS: Bilirubin Negative (Negative); Blood Negative (Negative); Clarity Clear (Clear); Glucose Negative (Negative); Ketones Negative (Negative); Leukocyte Esterase Negative (Negative); Nitrite Negative (Negative); Specific Gravity 1.015 (1.005-1.025); Urobilinogen 0.2 mg/dL (Up to 0.2)
[2024-04-27 15:37] LABS: Abs Immature Grans 0.01 10^3/uL (0.0-0.06); Absolute Basophil Count 0.04 10^3/uL (0.0-0.2); Absolute Eosinophil Count 0.14 10^3/uL (0.0-0.7); Absolute Lymphocyte Count 2.02 10^3/uL (1.2-3.4); Absolute Monocyte Count 0.32 10^3/uL (0.1-0.8); Absolute Neutrophil Count 2.93 10^3/uL (1.2-6.7); Basophils % 0.7 %; Eosinophils % 2.6 %; HCT 39.9 % (36.0-46.0); HGB 12.9 g/dL (11.2-15.7); Immature Grans % 0.2 %; MCH 30.3 pg (27.0-33.0); MCHC 32.3 % (32.0-36.0); MCV 94 fL (80-95); MPV 9.5 fL (8.0-11.0); Monocytes % 5.9 %; Neutrophils % 53.6 %; Platelet Count 232 10^3/uL (130-400); RBC 4.26 10^6/uL (3.93-5.22); RDW 12.8 % (11.7-14.6); RDW-SD 43.5 fL; WBC 5.46 10^3/uL (4.4-10.8)
[2024-04-27 15:57] LABS: ESR 2 mm/hr (0-20)
[2024-04-27 16:59] LABS: Iron 53 ug/dL (50-170); Total Iron Binding Capacity 311 ug/dL (250-450); Transferrin Sat 17 % (15-50)
[2024-04-27 17:22] LABS: ALT 29 U/L (14-59); AST 17 U/L (15-37); Albumin 4.2 g/dL (3.4-5.0); Alkaline Phosphatase 46 U/L (46-116); Anion Gap 7.7 mmol/L (3-11); BUN 8 mg/dL (7-18); Bilirubin, Total 0.42 mg/dL (0.2-1.0); CO2 29.3 mmol/L (21.0-32.0); CREATININE 0.7 mg/dL (0.55-1.02); Calcium 9.4 mg/dL (8.5-10.1); Chloride 104 mmol/L (98-107); Estimated GFR 113.46 (mL/min/1.73m2); Ferritin 44 ng/mL (8-252); Folate 18.5 ng/mL (8.6-20.0); Glucose 85 mg/dL (74-106); Potassium 3.1 mmol/L (3.5-5.1); Sodium 141 mmol/L (136-145); TSH (W/Ref FT4) 0.98 uIU/mL (0.36-3.74); Total Protein 7.7 g/dL (6.4-8.2); Vitamin B12 539 pg/mL (193-986); Vitamin D 25 Total 18.8 ng/mL (30-100)
[2024-04-28 12:44] LABS: Chlamydia Result Negative (Negative); GC Result Negative (Negative)
[2024-04-29 09:04] LABS: HIV-1/2 Ag & Ab Screen Negative (Negative)
[2024-04-29 09:30] LABS: Hepatitis C Ab w Rflx HCV PCR Negative (Negative)
[2024-04-29 11:53] LABS: Syphilis Serology (RPR) Negative (Negative)
[2024-04-29 12:28] LABS: ANA Interpretation Negative (Negative)
== END 2024-04-27 03:25 | disposition home or self-care (01) ==
LOC: LBO 03:25
PROVIDERS: Visit Provider Nurse Practitioner Family
DX: L73.2 Hidradenitis suppurativa (principal); R53.83 Other fatigue; Z11.59 Encounter for screening for other viral diseases
CPT/HCPCS: 36415; 80053; 82306; 85652; 86803; 87389; 87491; 87591; 81003; 82607; 82728; 82746; 83540; 83550; 84439; 84443; 85025; 86038; 86592

== ENCOUNTER 2024-10-26 16:48 | Outpatient (REF) | payer OTHER, SELFPAY ==
--- NOTE | 2024-10-26 14:30 | PAPFT_PTH ---
PATIENT: Sada Tavares LOC: [facility] U#:[id number] AGE/SX: 39/F ROOM: RE10/26/[address]: Eve Galicia : 1985 BED: DIS: 10/26/2024 SPEC #: [id number] RECD: 10/27/24 12:50 STATUS: AME REQ #: [id number] CASEY: 10/26/24 14:[address]: Eve Galicia DEPT: [facility] Cytology RECD BY: Ketty Davis ENTERED: 10/27/24 12:50 SP TYPE: PAPFT OTHR DR: Unknown,Unknown Tissues: 1 - CX/ENDOCX FOR PAP SMEARS Procedures: PAP THIN PREP/[facility] Screening HPV DNA PROBE Comments: [id number] (HPV 16 & 18/45) (CHLAMYDIA/GC)
== END 2024-10-26 16:49 | disposition home or self-care (01) ==
LOC: NCHCN 16:48
PROVIDERS: Visit Provider Family Medicine
DX: Z11.51 Encounter for screening for human papillomavirus (HPV) (principal); N89.8 Other specified noninflammatory disorders of vagina; Z90.710 Acquired absence of both cervix and uterus; Z01.419 Encounter for gynecological examination (general) (routine) without abnormal findings; R87.810 Cervical high risk human papillomavirus (HPV) DNA test positive
CPT/HCPCS: 87491; 87591; 88142; 87480; 87510; 87624; 87660

== ENCOUNTER 2024-10-28 16:21 | Outpatient (REF) | payer OTHER, SELFPAY ==
[2024-10-31 12:41] LABS: Chlamydia Result Negative (Negative); GC Result Negative (Negative)
== END 2024-10-28 16:22 | disposition home or self-care (01) ==
LOC: NCHCN 16:21
PROVIDERS: Visit Provider Family Medicine
DX: Z11.3 Encounter for screening for infections with a predominantly sexual mode of transmission (principal)
CPT/HCPCS: 87491; 87591

== ENCOUNTER 2024-12-09 15:31 | Outpatient (REF) | payer OTHER, SELFPAY ==
[2024-12-09 21:26] LABS: Abs Immature Grans 0.01 10^3/uL (0.0-0.06); Absolute Basophil Count 0.02 10^3/uL (0.0-0.2); Absolute Eosinophil Count 0.07 10^3/uL (0.0-0.7); Absolute Lymphocyte Count 1.67 10^3/uL (1.2-3.4); Absolute Monocyte Count 0.27 10^3/uL (0.1-0.8); Absolute Neutrophil Count 3.01 10^3/uL (1.2-6.7); Basophils % 0.4 %; Eosinophils % 1.4 %; HCT 41.1 % (36.0-46.0); HGB 13.6 g/dL (11.2-15.7); Immature Grans % 0.2 %; Lymphocytes % 33.1 %; MCH 30.8 pg (27.0-33.0); MCHC 33.1 % (32.0-36.0); MCV 93 fL (80-95); MPV 10.3 fL (8.0-11.0); Monocytes % 5.3 %; Neutrophils % 59.6 %; Platelet Count 252 10^3/uL (130-400); RBC 4.41 10^6/uL (3.93-5.22); RDW 12.8 % (11.7-14.6); RDW-SD 44.3 fL; WBC 5.05 10^3/uL (4.4-10.8)
[2024-12-09 21:38] LABS: ALT 25 U/L (14-59); AST 23 U/L (15-37); Alkaline Phosphatase 61 U/L (46-116); Anion Gap 5.6 mmol/L (3-11); BUN 13 mg/dL (7-18); Bilirubin, Total 0.4 mg/dL (0.2-1.0); CO2 31.4 mmol/L (21.0-32.0); CREATININE 0.6 mg/dL (0.55-1.02); Calcium 9.4 mg/dL (8.5-10.1); Chloride 105 mmol/L (98-107); Estimated GFR 117.02 (mL/min/1.73m2); Glucose 88 mg/dL (74-106); Potassium 4.2 mmol/L (3.5-5.1); Sodium 142 mmol/L (136-145); Total Protein 7.4 g/dL (6.4-8.2)
== END 2024-12-09 15:32 | disposition home or self-care (01) ==
LOC: NCHCN 15:31
PROVIDERS: Visit Provider Nurse Practitioner Family
DX: G44.52 New daily persistent headache (NDPH) (principal)
CPT/HCPCS: 80053; 85025

== ENCOUNTER 2025-01-16 12:15 | Outpatient (REF) | payer OTHER, SELFPAY ==
[2025-01-16 15:59] LABS: ALT 19 U/L (14-59); AST 15 U/L (15-37); Albumin 3.7 g/dL (3.4-5.0); Alkaline Phosphatase 49 U/L (46-116); Bilirubin, Direct 0.2 mg/dL (0.0-0.2); Bilirubin, Total 0.5 mg/dL (0.2-1.0); Total Protein 6.3 g/dL (6.4-8.2)
[2025-01-16 17:11] LABS: Calculated LDL 117 mg/dL (<100); Cholesterol 198 mg/dL (<200); HDL Cholesterol 67 mg/dL (>or=50); Triglyceride 70 mg/dL (<150)
== END 2025-01-16 12:16 | disposition home or self-care (01) ==
LOC: NCHCN 12:15
PROVIDERS: PCP Nurse Practitioner Family; Visit Provider Nurse Practitioner Family
DX: Z00.00 Encounter for general adult medical examination without abnormal findings (principal)
CPT/HCPCS: 80061; 80076

== ENCOUNTER 2025-01-17 18:06 | Outpatient (CLI) | payer OTHER, SELFPAY ==
--- NOTE | 2025-01-17 18:15 | DI.RAD_ITS ---
Exam(s) XR WRIST LT COMPLETE EXAM: XR WRIST LT COMPLETE CLINICAL HISTORY: eval pathology. TECHNIQUE: 2D digital imaging was performed. Three views. COMPARISON: No exams were available for comparison FINDINGS: BONES: No acute fracture is present. No bony destructive lesion is seen. JOINTS: The carpal bones are normally aligned. SOFT TISSUE: Normal. IMPRESSION: Unremarkable radiographs of the left wrist. DATA REPOSITORY: RADIATION DOSE DELIVERED:
== END 2025-01-17 18:26 ==
LOC: DI 18:06
PROVIDERS: PCP Nurse Practitioner Family; Visit Provider Nurse Practitioner Family
DX: M25.532 Pain in left wrist (principal)
CPT/HCPCS: 73110

== ENCOUNTER 2025-02-14 19:03 | Outpatient (REF) | payer OTHER, SELFPAY ==
[2025-02-16 13:22] LABS: Chlamydia Result Negative (Negative); GC Result Negative (Negative)
== END 2025-02-14 19:04 | disposition home or self-care (01) ==
LOC: LBN 19:03
PROVIDERS: PCP Nurse Practitioner Family; Visit Provider Nurse Practitioner Family
DX: J02.9 Acute pharyngitis, unspecified (principal)
CPT/HCPCS: 87491; 87591; 87070

== ENCOUNTER 2025-03-02 16:36 | Outpatient (REF) | payer OTHER, SELFPAY ==
[2025-03-02 17:47] LABS: Bacteria Few HPF (Negative); C & S Indicated? C&S Done As Ordered; Casts Negative LPF (Negative); Crystals Negative HPF (Negative); Epithelial Cells Rare HPF (Negative); Mucus Negative (Negative); RBC 0-2 HPF (0-2)
== END 2025-03-02 16:37 | disposition home or self-care (01) ==
LOC: LBN 16:36
PROVIDERS: PCP Nurse Practitioner Family; Visit Provider Physician Assistant Medical
DX: R30.0 Dysuria (principal)
CPT/HCPCS: 87077; 81015; 87086; 87186

== ENCOUNTER 2025-07-01 10:14 | Outpatient (REF) | payer SELFPAY ==
[2025-07-01 15:58] LABS: Glucose Color Interference mg/dL (Negative)
[2025-07-01 16:04] LABS: RBC 0-2 HPF (0-2)
== END 2025-07-01 10:15 | disposition home or self-care (01) ==
LOC: LBN 10:14
PROVIDERS: PCP Nurse Practitioner Family; Visit Provider Physician Assistant
DX: R30.0 Dysuria (principal)
CPT/HCPCS: 81003; 81015

== ENCOUNTER 2025-08-01 15:24 | Emergency (ER) | payer BC, SELFPAY ==
[2025-08-01] VITALS (21 sets, daily range): BP systolic 91–105; BP diastolic 45–75; PULSE 63–92; RESP 14–32; TEMP 36.7–37.1; O2SAT 97–100
--- NOTE | 2025-08-01 15:30 | DI.CT_ITS ---
Exam(s) CT CHEST PE ABD PELVIS W EXAM: CT CHEST PE ABD PELVIS W CLINICAL HISTORY: right sided pleuritic chest and flank pain. TECHNIQUE: Imaging Protocol: Axial CT angiography was performed with multi- slice acquisition and multi-planar and/or 3D reconstructions. CONTRAST MATERIAL: Intravenous: Omnipaque 350 Contrast volume:75 mL Oral: None COMPARISON: CT ABD PELVIS WITH CONTRAST from 07/22/[address] ABDOMEN PELVIS W from 03/24/2024 FINDINGS: CHEST: PULMONARY ARTERIES: There are no intra-arterial filling defects to suggest the presence of acute pulmonary emboli. LUNGS: There is no evidence of pulmonary infarction.No infiltrates. There are no pleural effusions. MEDIASTINUM: There is no hilar nor mediastinal adenopathy. Visualized thyroid unremarkable. CARDIAC: Heart size is normal. There is no pericardial effusion. There is no significant shift of the interventricular septum.Caliber of the thoracic aorta is within normal limits. No evidence of dissection. OSSEOUS: No significant osseous lesions. No fractures.. ABDOMEN: There is no ascites. LIVER: There are no focal hepatic lesions nor dilatation of intrahepatic ducts. GALLBLADDER/BILIARY: No obvious gallbladder pathology. CBD is not dilated. PANCREAS: No evidence of pancreatic mass nor dilatation of the pancreatic duct. SPLEEN: Spleen is not enlarged. There are no intrasplenic lesions. Splenic and portal veins are patent. ADRENALS: There are no significant adrenal masses. KIDNEYS:No cysts evident. No calculi nor hydronephrosis. No solid renal masses. ABDOMINAL AORTA: Abdominal aorta is not enlarged. LYMPH NODES: There is no retroperitoneal or para-aortic adenopathy. ABDOMINAL WALL/GI: No evidence of significant anterior abdominal wall hernia. There is abundant fluid in the mid-distal small bowel loops without significant dilatation of these loops, averaging 2 cm diameter. Colon is collapsed and difficult to evaluate. PELVIS: LYMPH NODES: There is no intrapelvic nor inguinal adenopathy. GI: Appendix is not identified. No obvious appendicitis.No evidence of sigmoid diverticulitis. URINARY BLADDER: Partially collapsed. No intraluminal calculi. Pelvic ureters are not dilated. REPRODUCTIVE: Uterus is surgically absent. There are no abnormal adnexal masses. There is a 1.3 cm follicular cyst in the right ovary. Left ovary is difficult to identify month the fluid-filled bowel loops filling the pelvis. OSSEOUS: No fractures. However, there are findings at the level sacroiliac joints which may indicate bilateral sacroiliitis. There is no ankylosis. There is also a lucent lesion in the medial aspect of the right hip femoral head measuring 2.0 x 1.2 cm, possibly significant. There is also a lucent bone lesion in the posterior right side of the sacrum adjacent to the sacroiliac joint measuring 1.3 x 0.9 cm. These bone lesions in the right-side of the pelvis and right hip are unchanged from prior CT scan of 03/24/2024 IMPRESSION: 1. No evidence of acute pulmonary emboli nor pulmonary infarction. 2. No acute intrathoracic findings 3. Fluid-filled small bowel loops in the pelvis probably element of enteritis. There does not appear to be bowel obstruction. 4. Previous hysterectomy again noted. No abnormal adnexal masses. No free fluid. 5. Lucent bone lesions in the right hip femoral head and posterior right side of the sacrum which are unchanged from CT scan 03/24/2024. Also findings which may be consistent with an element of bilateral sacroiliitis which are also unchanged from CT scan of March 2024. Called by myself to ER physician 08/01/2025 at 5:10 p.m. RADIATION DOSE DELIVERED: 476.93mGy.cm Total DLP DATA REPOSITORY: All CT scans at this facility are submitted to the National Radiology Data Registry (NRDR) Dose Index Registry (DIR) with the [employer] (A[employer]). RADIATION OPTIMIZATION: All CT scans at this facility use at least one of these dose optimization techniques: automated exposure control; mA and/or kV adjustment per patient size (includes targeted exams where dose is matched to clinical indication); or iterative reconstruction.
--- NOTE | 2025-08-01 15:43 | ED.GENADUL_ITS ---
Discharge Plan Disposition Patient Disposition: Home Condition: Stable Discharge Details Clinical Impression: N&V (nausea and vomiting), Flank pain Primary Care Provider: Sharri Hidalgo ED Provider: John Kline Home Meds and New Rx's Prescriptions: New ondansetron 4 mg tablet,disintegrating 4 mg PO Q8H PRN (Reason: nausea and vomiting) Qty: 30 0RF Continued escitalopram oxalate [Lexapro] 10 mg tablet 10 mg PO DAILY isotretinoin [Accutane] 20 mg capsule PO PRN Discharge Instructions Additional Instructions: Your lab work showed your potassium and magnesium level were mildly low. Your CT and urine did not show signs of a kidney infection, you do have signs of a gastroenteritis which usually runs its course over a day or 2. Follow-up with your primary care provider if your symptoms are not improving within a week. Your CAT scan also showed you have a lucency in your right femur and your sacrum which are stable compared to prior exams but your primary care provider should be made aware of this when you follow-up with them. If you feel more ill, have persistent vomiting despite the ondansetron or severe worsening pain return to the emergency department for reevaluation. Stand Alone Forms: Portal Information HPI General Mode of arrival: ambulatory . Date/Time Provider Initiated Documentation: 08/01/25 15:26 . Limitations to Documentation: no limitations . Information obtained by: patient . History of Present Illness 39 year old F presents to the emergency department with the chief complaint of n/v, flank pain, described as moderate, Quality is described as sharp, and is localized to the back. Patient started experiencing this hour(s) (15) and it has been constant. No relieving factors improve symptom(s), No exacerbating factors reported . Patient notes nausea/vomiting; denies chest pain. Related Data Home Medications Medication Instructions Recorded Confirmed escitalopram oxalate 10 mg tablet 10 mg PO DAILY 01/1708/01/25 (Lexapro) isotretinoin 20 mg capsule PO PRN 07/01/25 08/01/25 (Accutane) ondansetron 4 mg disintegrating 4 mg PO Q8H PRN nausea and 08/01/25 tablet vomiting #30 tabs Previous Rx's Medication Instructions Recorded ondansetron 4 mg disintegrating 4 mg PO Q8H PRN nausea and 08/01/25 tablet vomiting #30 tabs Allergies Allergy/AdvReac Type Severity Reaction Status Date / Time No Known Allergies Allergy Unverified 08/01/25 15:32 General Stated Complaint: Urinary FERNANDO: 3 Review of Systems All systems reviewed & are unremarkable except as noted in HPI and below Constitutional Constitutional: Denies chills, Denies fever(s) and Denies weakness Cardiovascular Cardiovascular: Denies chest pain and Denies dyspnea Respiratory Respiratory: Denies cough and Denies dyspnea Gastrointestinal Gastrointestinal: Reports abdominal pain, Reports nausea and Reports vomiting Genitourinary Genitourinary: Reports dysuria Neurologic Neurologic: Denies weakness Exam Const General: no acute distress Orientation: alert [facility] Head: normal to inspection Ears: external ears normal General nose exam: external nose normal Mouth: moist mucous membranes Eyes General: appearance normal, both eyes and all related structures Neck Neck: normal visual inspection Resp Effort & Inspection: normal respiratory effort and able to speak in complete sentences Cardio Rate: regular rate GI Palpation: soft and tender Back/Spine/Pelvis Back: CVA tenderness Skin General skin exam: no rashes or lesions noted Neuro General: patient alert and patient oriented x3 Extrem General: normal to inspection Psych Mental Status: mental status grossly normal Course Vital Signs Vital signs: Vital Signs Temperature 37.1 C 08/01/25 15:28 Pulse 74 08/01/25 15:28 Respiratory Rate 20 08/01/25 15:28 Blood Pressure 99/65 L 08/01/25 15:28 Pulse Oximetry 98 08/01/25 15:28 Temperature 37.1 C 08/01/25 15:31 Temperature Source Tympanic 08/01/25 15:31 Pulse 74 08/01/25 15:31 Respiratory Rate 20 08/01/25 15:31 Blood Pressure 99/65 L 08/01/25 15:31 Blood Pressure Position Sitting 08/01/25 15:31 Pulse Oximetry 98 08/01/25 15:31 Oxygen Delivery Method Room Air 08/01/25 15:31 Oxygen Flow Rate 0 08/01/25 15:31 Medical Decision Making 39-year-old female send hysterectomy, comes in with 15 hours of nausea vomiting, painful urination and right CVA area pain. Denies any fevers or chills, states she was treated for UTI a month ago and is not sure her symptoms have resolved. He has some mild lower abdominal suprapubic area tenderness otherwise no severe abdominal pain. He is well-appearing speaking full sentences in no distress. Does have suprapubic tenderness and guarding, does have right CVA tenderness and states that taking a deep breath hurts. Unclear etiology for symptoms but given the location of her pain we will check a CBC CMP lipase, UA, and CTA to evaluate for possible PE causing her CVA tenderness and also CT abdomen pelvis to evaluate for evidence of pyelonephritis. Labs show mildly low magnesium and potassium which were repleted IV. CT shows no emergent findings, does have findings of a likely gastroenteritis. Has lucencies in his right femur and sacrum which are unchanged, I did make them aware of this for follow-up with her primary care provider. She is feeling better, given reassuring workup I feel she is stable for discharge and can follow-up with her PCP, return precautions given. Differential Diagnosis Differential Diagnosis: Gastroenteritis, pyelonephritis, PE, kidney stone Lab Data Lab results reviewed: Yes I reviewed the patient's lab results. 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 Son No problems noted. Son No problems noted. Social History Smoking/Tobacco Use Status: Never Smoking risk assessment performed?: Yes Alcohol Intake: former Drug use: Never Substance use type: does not use Housing: house Do you feel safe at home: Yes Do you feel safe in your relationship?: Yes Additional Social history: lives alone
[2025-08-01 16:02] LABS: Abs Immature Grans 0.05 10^3/uL (0.0-0.06); HCT 42.7 % (36.0-46.0); HGB 13.7 g/dL (11.2-15.7); Immature Grans % 0.6 %; MCH 30.1 pg (27.0-33.0); MCHC 32.1 % (32.0-36.0); MCV 94 fL (80-95); MPV 9.7 fL (8.0-11.0); Platelet Count 181 10^3/uL (130-400); RBC 4.55 10^6/uL (3.93-5.22); RDW 12.8 % (11.7-14.6); RDW-SD 43.8 fL; WBC 8.89 10^3/uL (4.4-10.8)
[2025-08-01 16:15] LABS: Lipase 24 U/L (<53)
[2025-08-01] MEDS: Omnipaque 350 MG/ML 100 ML BTL IJ (16:15)
[2025-08-01] MEDS: Normal Saline Flush 10 ML SYR IVP (16:15)
[2025-08-01] MEDS: Normal Saline - Diluent 50 ML VIAL IJ (16:15)
[2025-08-01 16:16] LABS: Magnesium 1.5 mg/dL (1.6-2.6)
[2025-08-01 16:18] LABS: ALT 74 U/L (10-49); AST 32 U/L (<34); Albumin 4.4 g/dL (3.4-5.0); Alkaline Phosphatase 48 U/L (46-116); Anion Gap 10.2 mmol/L (3-11); BUN 14 mg/dL (9-23); Bilirubin, Total 0.70 mg/dL (0.2-1.2); CO2 26.8 mmol/L (20.0-31.0); Calcium 9.0 mg/dL (8.3-10.6); Chloride 106 mmol/L (98-107); Glucose 100 mg/dL (74-106); Potassium 3.3 mmol/L (3.5-5.1); Sodium 143 mmol/L (136-145); Total Protein 7.3 g/dL (5.7-8.2)
[2025-08-01] MEDS: Prochlorperazine 10 MG/2 ML VIAL IVP (16:22)
[2025-08-01] MEDS: Normal Saline 1,000 ML 1000 ML IV (16:23)
[2025-08-01] MEDS: Ketorolac 15 MG/ML VIAL IVP (16:23)
[2025-08-01] MEDS: MAGNESIUM SULFATE 1 GM/100 ML BAG IV_INF (17:10)
[2025-08-01] MEDS: POTASSIUM CHLORIDE 10 MEQ/100 ML BAG 100 MEQ IV_INF (17:13)
[2025-08-01 17:57] LABS: Glucose Negative (Negative)
[2025-08-01] MEDS: Ondansetron O.D.T. 4 MG TABEF, 3 TABS/BTL PO (18:36)
== END 2025-08-01 18:49 | disposition home or self-care (01) ==
PROVIDERS: Emergency Provider Emergency Medicine; PCP Nurse Practitioner Family
DX: R11.2 Nausea with vomiting, unspecified (principal); R10.A1 Flank pain, right side; R30.9 Painful micturition, unspecified
CPT/HCPCS: 99284; 99285; 36415; 96368; 96375; 71275; 74177; 80053; 83690; 87637; 96365; 81003; 83735; 85025; 87086; J0780; J1885; J3475; J3480; J3490

== ENCOUNTER 2025-08-17 09:40 | Outpatient (CLI) | payer SELFPAY ==
[2025-08-17 10:48] LABS: C-Reactive Protein < 0.50 mg/dL (<=0.50)
== END 2025-08-17 09:41 | disposition home or self-care (01) ==
LOC: LBO 09:44
PROVIDERS: PCP Nurse Practitioner Family; Visit Provider Student in an Organized Health Care Education/Training Program
DX: R93.7 Abnormal findings on diagnostic imaging of other parts of musculoskeletal system (principal)
CPT/HCPCS: 36415; 86812; 86140

== ENCOUNTER 2025-08-23 12:23 | Outpatient (CLI) | payer SELFPAY ==
[2025-08-23 12:19] LABS: Abs Immature Grans 0.02 10^3/uL (0.0-0.06); HCT 38.0 % (36.0-46.0); HGB 12.4 g/dL (11.2-15.7); Immature Grans % 0.4 %; MCH 30.5 pg (27.0-33.0); MCHC 32.6 % (32.0-36.0); MCV 93 fL (80-95); MPV 9.5 fL (8.0-11.0); Platelet Count 213 10^3/uL (130-400); RBC 4.07 10^6/uL (3.93-5.22); RDW 12.4 % (11.7-14.6); RDW-SD 42.8 fL; WBC 5.06 10^3/uL (4.4-10.8)
[2025-08-23 12:23] LABS: ESR 5 mm/hr (0-20)
[2025-08-23 12:56] LABS: C-Reactive Protein < 0.50 mg/dL (<=0.50)
[2025-08-23 12:58] LABS: ALT 16 U/L (10-49); AST 19 U/L (<34); Albumin 4.5 g/dL (3.2-5.0); Alkaline Phosphatase 47 U/L (46-116); Anion Gap 7.7 mmol/L (3-11); BUN 11 mg/dL (9-23); Bilirubin, Total 0.6 mg/dL (0.2-1.2); CO2 29.3 mmol/L (20.0-31.0); Calcium 9.2 mg/dL (8.3-10.6); Chloride 103 mmol/L (98-107); Glucose 118 mg/dL (74-106); Potassium 4.1 mmol/L (3.5-5.1); Sodium 140 mmol/L (136-145); Total Protein 7.4 g/dL (5.7-8.2)
[2025-08-24 15:22] LABS: Albumin 63.2 % (55.8-66.1); Albumin g/dL 4.5 g/dL (3.6-5.2); Alpha 1 g/dL 0.30 g/dL (0.15-0.40); Alpha 2 g/dL 0.60 g/dL (0.50-1.00); Beta g/dL 0.80 g/dL (0.60-1.20); Gamma g/dL 0.90 g/dL (0.60-1.60); Total Protein 7.1 g/dL (6.3-8.2)
== END 2025-08-23 12:24 | disposition home or self-care (01) ==
LOC: LBO 12:23
PROVIDERS: PCP Nurse Practitioner Family; Visit Provider Student in an Organized Health Care Education/Training Program
DX: M89.8X5 Other specified disorders of bone, thigh (principal)
CPT/HCPCS: 36415; 80053; 85652; 84155; 84165; 85025; 86140; 86320